=== PATIENT | male | born 1995 | race African-American/Black ===

== ENCOUNTER 2020-12-21 09:37 | Emergency (ER) | payer SELFPAY ==
[~2020-12-21] VITALS: Ht 182.9 cm; Wt 109.0 kg
[2020-12-21] MEDS ORDERED: LORAZEPAM 2MG/ML CPJ IM STA (09:47)
[2020-12-21 10:14] LABS: BASOPHILS % 0.4 % (0.0-2.0); EOSINOPHILS % 0.2 % (0.0-5.0); HEMATOCRIT. 43.1 % (42.0-52.0); HEMOGLOBIN. 14.4 g/dL (14.0-18.0); LYMPHOCYTES % 14.3 % (20.0-50.0); MEAN CORPUSCULAR HEMOGLOBIN 27.1 pg (28.0-32.0); MEAN PLATELET VOLUME 7.9 fl (7.4-10.4); MONOCYTES % 9.6 % (2.0-8.0); NEUTROPHILS % 75.5 % (40.0-76.0); PLATELET 298 x1000/uL (130-400); RED BLOOD CELL COUNT 5.33 mill/uL (4.7-6.1); RED CELL DISTRIBUTION WIDTH 13.7 % (11.6-14.6)
[2020-12-21 10:25] LABS: CHLORIDE 108 mEq/L (98-107)
[2020-12-21 10:29] LABS: ETHANOL BLOOD < 10 mg/dL
[2020-12-21 10:34] LABS: CREATINE KINASE 421 IU/L (39-308)
[2020-12-21] MEDS ORDERED: HALOPERIDOL LACTATE 5MG/ML VIAL IM ONE (12:45)
[2020-12-21] MEDS ORDERED: DIPHENHYDRAMINE 50MG/ML VIAL IM ONE (12:45)
[2020-12-21] MEDS ORDERED: LORAZEPAM 2MG/ML CPJ IM ONE (12:45)
[2020-12-21 14:08] LABS: CLARITY URINE TURBID (CLEAR); COLOR URINE DARK YELLOW (YELLOW); KETONES URINE TRACE (NEGATIVE); LEUKOCYTE ESTERASE URINE NEGATIVE (NEGATIVE); NITRITE URINE NEGATIVE (NEGATIVE); OCCULT BLOOD URINE 2+ (NEGATIVE); PROTEIN URINE 1+ (NEGATIVE); SPECIFIC GRAVITY URINE 1.037 (1.005-1.030)
[2020-12-21 14:22] LABS: *AMPHETAMINES SCREEN URINE NEGATIVE (NEGATIVE)
[2020-12-21 14:23] LABS: *BARBITURATES SCREEN URINE NEGATIVE (NEGATIVE); *BENZODIAZEPINES SCREEN URINE NEGATIVE (NEGATIVE); *COCAINE SCREEN URINE NEGATIVE (NEGATIVE); METHADONE URINE SCREEN NEGATIVE (NEGATIVE); OPIATES URINE SCREEN NEGATIVE (NEGATIVE); PHENCYCLIDINE URINE SCREEN NEGATIVE (NEGATIVE)
[2020-12-21 14:24] LABS: CANNABINOID URINE SCREEN NEGATIVE (NEGATIVE)
[2020-12-22] MEDS: RISPERIDONE 1MG TABLET PO SCH ×2 (09:31→21:28)
[2020-12-22] MEDS: DIVALPROEX SODIUM 250MG DR TABLET PO SCH (17:03)
[2020-12-23] MEDS: DIVALPROEX SODIUM 250MG DR TABLET PO SCH ×4 (00:08→22:33)
[2020-12-23] MEDS: RISPERIDONE 1MG TABLET PO SCH ×2 (09:05→21:09)
[2020-12-24] MEDS: DIVALPROEX SODIUM 250MG DR TABLET PO SCH ×3 (06:33→22:16)
[2020-12-24] MEDS: RISPERIDONE 1MG TABLET PO SCH ×2 (09:10→21:36)
[2020-12-25] MEDS: DIVALPROEX SODIUM 250MG DR TABLET PO SCH ×3 (07:07→23:15)
[2020-12-25] MEDS: RISPERIDONE 1MG TABLET PO SCH ×2 (08:42→21:00)
[2020-12-25] MEDS: OLANZAPINE 10MG TABLET PO SCH (17:05)
[2020-12-26] MEDS ORDERED: RISPERIDONE 1MG TABLET PO STA (05:45)
[2020-12-26] MEDS ORDERED: OLANZAPINE 10 MG/VIAL IM ONE (05:45)
[2020-12-26] MEDS: DIVALPROEX SODIUM 250MG DR TABLET PO SCH ×2 (06:00→15:38)
[2020-12-26] MEDS ORDERED: DIPHENHYDRAMINE 50MG CAPSULE PO SCH (06:00)
[2020-12-26] MEDS ORDERED: OLANZAPINE 10MG TABLET PO PRN (06:00)
[2020-12-26] MEDS ORDERED: DIVALPROEX SODIUM 250MG DR TABLET PO SCH (06:00)
[2020-12-26] MEDS: OLANZAPINE 10MG TABLET PO SCH (08:53)
[2020-12-26] MEDS: RISPERIDONE 1MG TABLET PO SCH (08:54)
[2020-12-27] MEDS: DIVALPROEX SODIUM 250MG DR TABLET PO SCH ×2 (01:03→08:56)
[2020-12-27] MEDS: RISPERIDONE 1MG TABLET PO SCH ×2 (01:04→08:57)
[2020-12-27] MEDS ORDERED: ACETAMINOPHEN 325MG TABLET PO ONE (08:00)
[2020-12-27] MEDS: OLANZAPINE 10MG TABLET PO SCH (08:58)
[2020-12-27 15:28] VITALS: BP 139/87
== END 2020-12-27 16:10 ==
LOC: EDBD 09:37 → ER 09:37
DX: F23 Brief psychotic disorder (principal); Z20.822 Contact with and (suspected) exposure to COVID-19
CPT/HCPCS: 36415; 80053; 80305; 80307; 80320; 80329; 81003; 82140; 82550; 82962; 85025; 96372; 99285; C9803; J1200; J1630; J2060; J3490; Q0163; U0003; U0005; Z7610; G0480